=== PATIENT | male | born 1970 | race Caucasian/White ===

== ENCOUNTER 2022-04-06 13:40 | Outpatient (REF) | payer OTHER, SELFPAY ==
[2022-04-07 14:21] LABS: Appearance Urine Turbid; Color Urine Yellow; Glucose Urine UA Negative (Negative); Leukocyte Esterase Urine Negative (Negative); Nitrite Urine Negative (Negative); PH 5.5 (5.0-9.0); Specific Gravity - Urine 1.025 (1.005-1.025); Urine Blood Negative (Negative); Urine Ketones Negative (Negative); Urine Protein Trace mg/dL (Neg-Trace)
== END 2022-04-06 13:41 | disposition home or self-care (01) ==
LOC: HO.LNP 13:40
PROVIDERS: Visit Provider Nurse Practitioner Family
DX: Z13.89 Encounter for screening for other disorder (principal)

== ENCOUNTER → 2022-07-03 13:01 | Outpatient (BNVA) | payer OTHER, SELFPAY | PROVIDERS: PCP Family Medicine; Visit Provider Urology ==

== ENCOUNTER 2022-08-22 08:00 | Outpatient (REF) | payer OTHER, SELFPAY ==
[2022-08-22 09:19] LABS: Alanine Aminotransferase 24 U/L (0-40); Albumin Level 4.1 g/dL (3.5-5.0); Alkaline Phosphatase 75 U/L (39-117); Anion Gap 14 (12-20); Aspartate Amino Transferase 19 U/L (5-37); Bilirubin Total 0.4 mg/dL (0.0-1.0); Blood Urea Nitrogen 18 mg/dL (9-16); Calcium 9.3 mg/dL (8.4-10.2); Carbon Dioxide 25 mmol/L (22-29); Chloride 107 mmol/L (96-108); Cholesterol 204 mg/dL; Estimated Glomerular Filt Rate > 60; Glucose Fasting 125 mg/dL (60-99); HDL Cholesterol 38 mg/dL; LDL Cholesterol Calculated 126 mg/dl; Potassium 4.6 mmol/L (3.3-5.1); Sodium 141 mmol/L (135-145); Total Protein 7.1 g/dL (6.5-8.0); Triglycerides 201 mg/dL
[2022-08-22 09:36] LABS: TSH reflex Free T4 3.17 uIU/mL (0.32-4.0)
== END 2022-08-22 08:01 | disposition home or self-care (01) ==
LOC: HO.LAB 08:00
PROVIDERS: PCP Family Medicine; Visit Provider Family Medicine
DX: Z00.00 Encounter for general adult medical examination without abnormal findings (principal); I10 Essential (primary) hypertension; Z12.5 Encounter for screening for malignant neoplasm of prostate
CPT/HCPCS: 36415; 80053; 80061; 81003; 82043; 84153; 84443

== ENCOUNTER 2022-08-31 11:40 | Outpatient (AMB) | payer OTHER, SELFPAY ==
--- NOTE | 2022-08-31 11:40 | A.OFFVIS_ITS ---
Intake Intake Visit Reasons: surgical question (diff. alternative) Intake Note: * This is a telephone visit for Surgical Questions * Meds- None * Allergies to Antibiotic- None * Blood Thinner- None Director Of Recruitment And Admissions Required: No Accompanied by: Self / Same As Patient Allergies No Known Allergies Allergy (Verified 09/04/22 15:51) Medication List - Last Reconciled 08/31/22 by Yael Perez MD naproxen 500 mg PO BID PRN HPI HPI Comments History of Present Illness Details LV--07/03/22--Hector is a 51-year-old male who presents to the office as a new patient evaluation for genital warts. The patient states undergoing excision 5 years ago for genital warts and underwent another procedure 3 years ago. He is due for blood work done and PSA is part of the blood work that is ordered by his PCP. I discussed with the patient that genital condyloma is caused due to the HPV virus and factors such as but not limited to stress may affect the immune system and cause recurrent lesions. Evaluation today-- Blood: negative, leukocytes: negative. On exam: a cauliflower like growth below the scrotum and smaller wart like lesion on the left side of the shaft of the penis. Prostate exam: mildly enlarged prostate, smooth. Plan: Discussed importance of drinking adequate amount of water. Excision of genital warts discussed to be scheduled.? 08/31/22-- HPI: As noted above. The patient had canceled his scheduled procedure to have the excision of the genital condyloma. He canceled the procedure because the hospital called him and changed the procedure time and the person that was going to bring him to the hospital was not able to bring him because of the time change. He is still willing to undergo the procedure. Plan: Excision of genital condyloma discussed to be scheduled.? 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 Current occupational exposures/hazards: No Cognitive needs: No Hearing needs: No Vision needs: No Review of Systems Const All systems reviewed & are unremarkable except as noted in HPI and below Reports no additional complaints Eyes Reports no additional complaints ENT Denies neck pain Card Denies leg edema Resp Denies cough GI Denies constipation Musc Reports no additional complaints and Denies neck pain Skin/Breast Denies rash and Denies unusual bruising Neuro Reports no additional complaints Psych Reports no additional complaints Endo Reports no additional complaints Sergio/Lymph Reports no additional complaints Aller/Immun Reports no additional complaints Assessment & Plan Assessment & Plan (1) Genital condyloma, male: Code(s): A63.0 - Anogenital (venereal) warts Plan Excision of genital condyloma discussed to be scheduled.? Patient Instructions: The patient had an opportunity to ask questions regarding treatment plan. All questions were answered. No major barriers to understanding were identified. The patient expressed understanding and agreement with the above treatment plan. The patient is aware they should contact our office by phone for worsening of their current condition or the appearance of new symptoms. Compliance is encouraged with any medications and followup testing that is ordered. It is a privilege to be allowed the opportunity to participate in the urologic care of your patient. If you have any questions or concerns regarding treatment for the above conditions please do not hesitate to contact me. The office telephone contact is [phone]. This note is constructed in part using voice recognition software. While every effort has been made to ensure accuracy software engineer kernel errors may have been included. Yours sincerely, Yael Perez MD Telehealth Telehealth Location of provider rendering services: practice address Location of patient: address on file Patient Identification confirmed using: Name, : Yes Telehealth method: voice only Patient verbally consented to treatment: Yes Patient verbally consented to billing insurance company: Yes Patient informed of any privacy concerns related to visit: Yes Minutes spent on Phone/Video with Pt.: 15 Coding Level of Care Code Tele New Pt Level 3 (80945) Diagnoses Genital condyloma, male A63.0
== END 2022-08-31 11:45 ==
LOC: HO.HUSH 11:40
PROVIDERS: PCP Family Medicine; Visit Provider Urology
DX: A63.0 Anogenital (venereal) warts (principal)
CPT/HCPCS: 99213

== ENCOUNTER → 2022-08-31 11:40 | Outpatient (BNVA) | payer OTHER, SELFPAY | PROVIDERS: PCP Family Medicine; Visit Provider Urology ==

== ENCOUNTER 2022-09-04 15:46 | Outpatient (AMB) | payer OTHER, SELFPAY ==
[2022-09-04 15:49] VITALS: BP 134/78; PULSE 67; O2SAT 97; BMI 37.1
--- NOTE | 2022-09-04 15:49 | MHC.PC.OV ---
Vital Signs 09/04/22 15:49 Height 6 ft Weight 273 lb 4 oz BMI 37.1 BP 134/78 Blood Pressure Location Lt brachial Position Sitting Pulse 67 Pulse Source Pulse Oximeter Pulse Oximetry (%) 97 Oxygen Delivery Method Room Air Intake Visit Reasons: CPE Intake Note: Patient is here for his physical today. Allergies No Known Allergies Allergy (Verified 09/04/22 15:51) Tobacco use date assessed: 09/04/22 Dental Screening Dental Screen Date: 09/04/22 Did you have a dental visit in the last 12 months?: Yes Did you have a dental problem in the last 6 months where you did not have access to dental care?: No Was dental information given to patient?: No HPI CPE HPI Details 51 y/o male presents for a CPE with f/u labs and [facility]. Labs were drawn 08/22/22. Reviewed labs with pt. Elevated fasting glucose of 125. Triglycerides 201. TC 204. LDL 126. HDL low at 38. He is not on any medications for his lipids. Microalb/Creat Ratio of 63.6. He reports significant GERD. He states he does have a hx of hiatal hernia. He reports last colonoscopy showed some small polyps, benign. 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 Jose Ryan, Anitra Murray, Terrance Mcneal and colleagues, with an educational juanita from [employer]. Review of Systems Const Denies chills, Denies fatigue, Denies fever(s), Denies headache(s) and Denies weakness Eyes Denies change in vision ENT Denies dizziness, Denies headache(s), Denies hearing loss, Denies nasal congestion, Denies sinus pain, Denies sinus pressure and Denies sore throat Card Denies chest pain, Denies lightheadedness, Denies dyspnea and Denies other (palpitations) Resp Denies cough, Denies dyspnea and Denies wheezing GI Denies abdominal pain, Denies melena, Denies hematochezia, Denies change in bowel habits, Denies dyspepsia and Denies nausea Denies hematuria and Denies dysuria Musc Denies abnormal gait, Denies myalgias, Denies arthralgias, Denies numbness and Denies tingling Skin/Breast Denies rash, Denies unusual bruising and Denies wounds Neuro Denies abnormal gait, Denies dizziness, Denies headache(s), Denies memory loss, Denies numbness, Denies Sensory deficit (Neuro), Denies tingling and Denies weakness Psych Denies anxiety, Denies depression and Denies memory loss Endo Denies cold intolerance, Denies fatigue, Denies heat intolerance, Denies polydipsia and Denies polyuria Sergio/Lymph Denies easy bleeding and Denies easy bruising Aller/Immun Denies wheezing Physical exam (Primary Care) Vital Signs: Last Vital Signs Pulse 67 09/04/22 15:49 BP 134/78 09/04/22 15:49 Pulse Ox 97 09/04/22 15:49 Oxygen Delivery Method Room Air 09/04/22 15:49 BMI result Body Mass Index 37.1 Tobacco/Smoking Status: Tobacco use Status Tobacco use date assessed 09/04/22 09/04/22 15:56 Patient Tobacco Use Status Former Tobacco user 09/04/22 15:56 Tobacco use type Cigarette 09/04/22 15:56 e-Cigarette/Vaping Use Never Used 09/04/22 15:56 Thrive Assessment: Date of Thrive Assessment Date Thrive assessed 05/22/22 09/04/22 15:56 Const General: no acute distress, well developed, alert and awake Nutritional Appearance: well nourished Orientation/consciousness: patient oriented x3 HENMT Head: Yes normocephalic and Yes atraumatic Ears: hearing grossly normal bilaterally and TM's normal bilaterally General nose exam: Normal external nose present and Normal nares present Mouth: Normal oral and palatal mucosa present and moist mucous membranes Teeth and gingiva: dentition normal Throat: Yes posterior oropharynx normal Eyes General: appearance normal, both eyes and all related structures Pupils: Equal, round and reactive pupils present and Pupil accommodation reflex normal EOM: EOMs intact bilaterally Neck Neck: Yes normal visual inspection, Yes no lymphadenopathy and Yes trachea midline Thyroid: Thyroid normal Carotids: no bruits Lymphatic: no lymphadenopathy noted Chest Chest palpation & inspection: normal inspection of the chest Resp Effort & Inspection: normal respiratory effort Auscultation: clear to auscultation bilaterally Cardio Rate: regular rate Rhythm: regular rhythm Heart sounds: S1 normal heart sound present, S2 normal heart sound present, no gallops, no murmurs and no rubs Bruits: no abdominal aortic bruits and no carotid bruits GI Palpation (GI): No Abdominal aortic bruit present, Soft to palpation, nontender, No hepatosplenomegaly present and No Rebound tenderness present Auscultation: normal bowel sounds General: Yes no CVA tenderness Back/Spine/Pelvis Back: no CVA tenderness Cervical Spine: cervical ROM normal and No Cervical spine tenderness Thoracic/Lumbar Spine: thoraco-lumbar ROM normal, No pain with thoraco-lumbar ROM, No thoracic spinal tenderness and No lumbar spinal tenderness Skin Lesions: no lesions Rashes: no rashes Trauma: no lacerations or abrasions Wounds: no wounds Nails: normal Neuro General: patient oriented x3 Cranial nerves: Yes Equal, round and reactive pupils present Cognition (Neuro): normal cognition Gait exam (Neuro): Normal gait present Motor exam (neuro): 5/5 motor strength present throughout Sensory Exam: No Sensory deficit (Neuro) Deep tendon reflexes (DTR's): Right patellar reflex intensity grade: 2+ and Left patellar reflex intensity grade: 2+ Extrem General: Yes normal to inspection and No edema Psych Appearance: grossly normal Affect: normal affect Attitude: cooperative Thought process: Normal thought process present Results AMB Hemoglobin A1c AMB Hemoglobin A1c 5.6 % Last Edit by Geovanna Bob CMA on 09/04/22 16:13 Results Reviewed Results Reviewed: Laboratory Last Values Hgb A1c (Clinic) 5.6 % (4.0-6.0) 09/04/22 16:06 Assessment and Plan Assessment & Plan (1) Adult general medical exam: Code(s): Z00.00 - Encounter for general adult medical examination without abnormal findings Plan: 51-year-old male presents for complete physical exam Encouraged healthy diet with active lifestyle and plenty of exercise (2) Microalbuminuria: Code(s): R80.9 - Proteinuria, unspecified Plan: Encouraged blood sugar her blood pressure and cholesterol control Encouraged lifestyle changes and we will follow-up in 3 months If still elevated will discuss using a small dose of lisinopril and also consider a referral to Nephrology (3) High triglycerides: Code(s): E78.1 - Pure hyperglyceridemia Plan: Encouraged a diet lower in saturated fats and cholesterol Encouraged blood sugar control Encouraged weight loss and exercise (4) Low HDL (under 40): Code(s): E78.6 - Lipoprotein deficiency Plan: Encouraged exercise (5) Elevated fasting glucose: Code(s): R73.01 - Impaired fasting glucose Plan: Encouraged a diet lower in sugars and starches Encouraged weight loss and exercise (6) Screening for colon cancer: Code(s): Z12.11 - Encounter for screening for malignant neoplasm of colon Plan: History of polyps. Patient has uncertain when he is supposed to follow-up Referring him to Gastroenterology for moderately severe GERD so he can also be evaluated for follow-up for colon cancer screening at that time. (7) GERD (gastroesophageal reflux disease): Code(s): K21.9 - Gastro-esophageal reflux disease without esophagitis Plan: Moderately severe GERD and a history of hiatal hernia, currently untreated Start omeprazole Avoid triggers Referred to Gastroenterology (8) Screening for prostate cancer: Code(s): Z12.5 - Encounter for screening for malignant neoplasm of prostate Plan: PSA was within normal limits Recent TARUN by Urology was within normal limits. Seeing urology for general warts Follow-up with urology (9) Change in hearing: Code(s): H91.90 - Unspecified hearing loss, unspecified ear Plan: This appears fairly stable and he does not want to pursue audiology testing at this time He will let me know if he changes his mind (10) History of hiatal hernia: Code(s): Z87.19 - Personal history of other diseases of the digestive system Plan: As above, he is already referred to Gastroenterology Orders: Orders AMB Hemoglobin A1c Today Z13.9 - Encounter for screening, unspecified Microalbumin, Random (w Creat) Today I10 - Essential (primary) hypertension, R80.9 - Proteinuria, unspecified Lipid Panel Today E78.1 - Pure hyperglyceridemia, Z00.00 - Encounter for general adult medical examination without abnormal findings Comprehensive [place]. Panel Fast Today R73.01 - Impaired fasting glucose, Z00.00 - Encounter for general adult medical examination without abnormal findings Referrals Gastroenterology Referral K21.9 - Gastro-esophageal reflux disease without esophagitis, Z86.010 - Personal history of colonic polyps, Z87.19 - Personal history of other diseases of the digestive system Medications: New omeprazole 40 mg PO DAILY 30 caps 3RF 30 days Coding Level of Care Code Est Pt Level 3 (61000) Est Pt Prev Care 40-64y(16953) Diagnoses Adult general medical exam Z00.00 Microalbuminuria R80.9 High triglycerides E78.1 Low HDL (under 40) E78.6 Elevated fasting glucose R73.01 Screening for colon cancer Z12.11 GERD (gastroesophageal reflux disease) K21.9 Screening for prostate cancer Z12.5 Change in hearing H91.90 History of hiatal hernia Z87.19
== END 2022-09-04 16:50 | disposition home or self-care (01) ==
PROVIDERS: Visit Provider Family Medicine
DX: Z00.00 Encounter for general adult medical examination without abnormal findings (principal); K21.9 Gastro-esophageal reflux disease without esophagitis; Z87.19 Personal history of other diseases of the digestive system; R73.01 Impaired fasting glucose; R80.9 Proteinuria, unspecified; E78.1 Pure hyperglyceridemia; E78.6 Lipoprotein deficiency; Z12.11 Encounter for screening for malignant neoplasm of colon; Z12.5 Encounter for screening for malignant neoplasm of prostate; H91.90 Unspecified hearing loss, unspecified ear
CPT/HCPCS: 83036; 99396

== ENCOUNTER 2022-11-03 10:28 | Day surgery (SDC) | payer OTHER, SELFPAY ==
[2022-07-31 15:00] VITALS: BMI 35.9
--- NOTE | 2022-08-03 10:34 | HO.ANESPROP2 ---
HPI - Anesthesia Eval Consult details Narrative: 51yo M for Excision Genital Warts PMF Active Problems Active Problems: All Active Problems (Updated 07/03/22 @ 13:36 by Angela Cadena) Genital condyloma, male (Acute) Genital warts (Acute) History of smoking (Acute) High triglycerides (Acute) Laboratory examination ordered as part of a routine general medical examination (Acute) Left groin pain (Acute) Past Medical History Medical History Dermatitis Family History Family History Mother Hypertension Hypercholesteremia Father Diabetes Cardiovascular disease Surgical History Surgical History H/O colonoscopy H/O vasectomy Social History Social History Housing: House Alcohol intake: never Patient Tobacco Use Status: Former Tobacco user Tobacco use type: Cigarette e-Cigarette/Vaping Use: Never Used service: Yes Current occupational status: employed 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
--- NOTE | 2022-11-02 10:13 | HO.ANESPROP2 ---
Documented by User: Yvonne Davis NP 11/02/22 10:14 HPI - Anesthesia Eval Consult details Narrative: 51yo M for Excision Genital Warts PMF Active Problems Active Problems: All Active Problems (Updated 09/04/22 @ 16:35 by Reinier Moreno) History of hiatal hernia (Acute) GERD (gastroesophageal reflux disease) (Acute) Change in hearing (Acute) Screening for prostate cancer (Acute) Screening for colon cancer (Acute) Elevated fasting glucose (Acute) Low HDL (under 40) (Acute) Microalbuminuria (Acute) Adult general medical exam (Acute) Genital condyloma, male (Acute) Genital warts (Acute) History of smoking (Acute) High triglycerides (Acute) Laboratory examination ordered as part of a routine general medical examination (Acute) Left groin pain (Acute) Past Medical History Medical History Dermatitis Family History Family History Mother Hypertension Hypercholesteremia Father Diabetes Cardiovascular disease Surgical History Surgical History H/O colonoscopy H/O vasectomy Social History Social History Housing: House Alcohol intake: never Patient Tobacco Use Status: Former Tobacco user Quit Date: 2016 Tobacco use type: Cigarette e-Cigarette/Vaping Use: Never Used Use of substances other than those prescribed or required for medical reasons: No Are you DNR?: No Advance Directives: No Advance Directives Information Provided: Yes service: Yes Current occupational status: employed 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[employer] Current occupational exposures/hazards: No Cognitive needs: No Hearing needs: No Vision needs: No Meds Allergies Allergy/AdvReac Type Severity Reaction Status Date / Time No Known Allergies Allergy Verified 11/03/22 10:37 Home Medications Medication Instructions Recorded Confirmed Last Taken Type omeprazole 40 mg capsule,delayed 40 mg PO DAILY PRN Heartburn 11/03/22 Unknown History release Exam Exam Date and Time: November 02, 2022 1013 Height,Weight and Vital Signs: Height 6 ft Weight 120.202 kg Pertinent Lab Results Pertinent Lab Results: Laboratory Tests 08/22/22 08:07 Sodium 141 Potassium 4.6 Chloride 107 Carbon Dioxide 25 BUN 18 H Creatinine 1.06 Assessment and Plan Assessment Anesthesia Assessment: Chart Reviewed Documented by User: Gabriela Thomas MD 11/03/22 11:57 PMFSH Past Medical History Medical History Dermatitis Family History Family History Mother Hypertension Hypercholesteremia Father Diabetes Cardiovascular disease Surgical History Surgical History H/O colonoscopy H/O vasectomy History of Problems with Anesthesia: No Social History Social History Housing: House Alcohol intake: never Patient Tobacco Use Status: Former Tobacco user Quit Date: 2016 Tobacco use type: Cigarette e-Cigarette/Vaping Use: Never Used Use of substances other than those prescribed or required for medical reasons: No Are you DNR?: No Advance Directives: No Advance Directives Information Provided: Yes service: Yes Current occupational status: employed 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 Current occupational exposures/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: No Cognitive needs: No Hearing needs: No Vision needs: No Meds Allergies Allergy/AdvReac Type Severity Reaction Status Date / Time No Known Allergies Allergy Verified 11/03/22 10:37 Home Medications Medication Instructions Recorded Confirmed Last Taken Type omeprazole 40 mg capsule,delayed 40 mg PO DAILY PRN Heartburn 11/03/22 Unknown History release Exam Airway Mallampati Class: III TM Dist: >3cm Neck ROM: Full Loose/Missing/Broken Teeth: No Heart: RRR Lungs: CTA Assessment and Plan Assessment Anesthesia Assessment: Anesthesia Plan Discussed Final Anesthetic Review History of Problems with Anesthesia: No NPO: Yes ASA Class: II Final Preanesthetic Review: Meds/Allgs Chart Reviewed, Consent Obtained/Reviewed and Anes Risks/Benef Reviewed Patient Risk: Low Procedure Risk: Low Anesthetic Plan Anesthetic Plan: GA Disposition: Standard PACU
[2022-11-03 10:37] VITALS: BMI 34.6
[2022-11-03 10:44] VITALS: BP 137/82; PULSE 59; RESP 15; TEMP 36.6; O2SAT 96
[2022-11-03] MEDS: Lactated Ringers 1,000 ML 100 ML IVCONT (10:58)
--- NOTE | 2022-11-03 12:11 | MHC.SHP ---
Pre-Procedural Eval Section A Date of Service: 11/03/22 The patient is an INPATIENT: No The History & Physical has been completed within 30 days and I have reviewed it.: Yes Section B Chief Complaint: Anogenital (venereal) warts Allergies: Allergies Allergy/AdvReac Type Severity Reaction Status Date / Time No Known Allergies Allergy Verified 11/03/22 10:37 Plan Diagnosis/Plan: Unchanged I have reviewed the history and physical and performed a pertinent physical examination on my patient. No changes have occurred unless specified. Excision of Genital warts Time Spent With Patient Time: Total time managing care of this patient today ____ minutes.
[2022-11-03 13:10] VITALS: BP 114/71; PULSE 67; RESP 22; TEMP 36.2; O2SAT 96
[2022-11-03 13:15] VITALS: BP 122/68; PULSE 67; RESP 20; O2SAT 96
--- NOTE | 2022-11-03 13:17 | W.PM.OPN ---
Operative Note Operative Note Date of Service: 11/03/22 Narrative: Preoperative diagnosis: Genital warts Postoperative diagnosis: Genital warts Procedure: Exision Genital warts Surgeon: Dr. Yael Perez Anesthesia: General findings: approximately 2.0 mm lesion shaft of the penis on the dorsal aspect, large cauliflower lesion right-side scrotum and groin approximately 4 x 4 cm Details of procedure:? The patient was brought into the operating room placed on the OR table in supine position.? 2 g of Ancef IV.? General anesthesia was administered.? The patient was prepped and draped in the usual sterile fashion. ? Time-out was done per protocol.? 1% lidocaine was used for local; both lesions were excised with 15 blade knife, cautery was used for hemostasis the skin was approximated with 4-0 and 3-0 chromic interrupted sutures. Bacitracin ointment and gauze was applied. The patient tolerated the procedure well. He was brought out of anesthesia. Drains: none Complications: none
[2022-11-03 13:20] VITALS: BP 118/70; PULSE 61; RESP 20; O2SAT 96
[2022-11-03 13:25] VITALS: BP 116/72; PULSE 60; RESP 20; O2SAT 96
[2022-11-03 13:40] VITALS: BP 120/68; PULSE 60; RESP 20; TEMP 36.4; O2SAT 96
== END 2022-11-03 13:56 | disposition home or self-care (01) ==
PROVIDERS: PCP Family Medicine; Visit Provider Urology
PROC: (CPT 11422; principal; 2022-11-03 12:00)
DX: A63.0 Anogenital (venereal) warts (principal); N40.0 Benign prostatic hyperplasia without lower urinary tract symptoms; L30.9 Dermatitis, unspecified; Z98.52 Vasectomy status; Z87.891 Personal history of nicotine dependence
CPT/HCPCS: 11422; 11426; 88305; J0131; J0690; J1100; J1885; J2250; J2405; J3010

== ENCOUNTER → 2022-11-03 10:28 | Outpatient (BNV) | payer OTHER, SELFPAY | PROVIDERS: PCP Family Medicine; Visit Provider Urology | DX: A63.0 Anogenital (venereal) warts (principal) | CPT/HCPCS: 54060 ==

== ENCOUNTER 2022-12-03 06:05 | Outpatient (REF) | payer OTHER, SELFPAY ==
[2022-12-03 08:18] LABS: Alanine Aminotransferase 30 U/L (0-40); Albumin Level 4.3 g/dL (3.5-5.0); Alkaline Phosphatase 74 U/L (39-117); Anion Gap 13 (12-20); Aspartate Amino Transferase 23 U/L (5-37); Bilirubin Total 0.8 mg/dL (0.0-1.0); Blood Urea Nitrogen 14 mg/dL (9-16); Calcium 9.9 mg/dL (8.4-10.2); Carbon Dioxide 26 mmol/L (22-29); Chloride 104 mmol/L (96-108); Cholesterol 195 mg/dL (<200); Estimated Glomerular Filt Rate > 60; Glucose Fasting 107 mg/dL (60-99); HDL Cholesterol 46 mg/dL (>40); LDL Cholesterol Calculated 128 mg/dL (<100); Potassium 4.3 mmol/L (3.3-5.1); Sodium 139 mmol/L (135-145); Total Protein 7.2 g/dL (6.5-8.0); Triglycerides 105 mg/dL (<150)
[2022-12-03 09:55] LABS: Creatinine Urine 141.64 mg/dL; Microalbum/Creatinine Ratio Ur 42.3 ug/mg cr (<30)
== END 2022-12-03 06:06 | disposition home or self-care (01) ==
LOC: HO.LAB 06:05
PROVIDERS: PCP Family Medicine; Visit Provider Family Medicine
DX: Z00.00 Encounter for general adult medical examination without abnormal findings (principal); I10 Essential (primary) hypertension; R80.9 Proteinuria, unspecified; E78.1 Pure hyperglyceridemia; R73.01 Impaired fasting glucose
CPT/HCPCS: 36415; 80053; 80061; 82043; 82570

== ENCOUNTER 2022-12-07 14:20 | Outpatient (REF) | payer OTHER, SELFPAY ==
[2022-12-08 15:26] LABS: Creatinine Urine 141.94 mg/dL; Microalbum/Creatinine Ratio Ur 52.1 ug/mg cr (<30)
== END 2022-12-07 14:21 | disposition home or self-care (01) ==
LOC: HO.LNP 14:20
PROVIDERS: Visit Provider Family Medicine
DX: I10 Essential (primary) hypertension (principal)
CPT/HCPCS: 82043; 82570

== ENCOUNTER 2022-12-07 15:59 | Outpatient (AMB) | payer OTHER, SELFPAY ==
[2022-12-07 16:14] VITALS: BP 132/76; PULSE 78; O2SAT 98; BMI 34.2
--- NOTE | 2022-12-07 16:14 | MHC.PC.OV ---
Vital Signs 12/07/22 16:14 Height 6 ft Weight 252 lb BMI 34.2 BP 132/76 Blood Pressure Location Lt brachial Position Sitting Pulse 78 Pulse Source Pulse Oximeter Pulse Oximetry (%) 98 Oxygen Delivery Method Room Air Intake Visit Reasons: f/u high triglycerides, microalbuminuria Intake Note: Patient is here to follow up on trigycerides and microalbumin. Allergies No Known Allergies Allergy (Verified 12/07/22 16:16) Tobacco use date assessed: 12/07/22 Dental Screening Dental Screen Date: 12/07/22 Did you have a dental visit in the last 12 months?: Yes Did you have a dental problem in the last 6 months where you did not have access to dental care?: No Was dental information given to patient?: Patient has dentist HPI f/u high triglycerides, microalbuminuria HPI Details 52 y/o male presents to f/u microalbuminuria and high triglycerides. Labs were drawn 12/03/22. Reviewed labs with pt. Elevated fasting glucose of 107. Last A1c 09/04/22 5.6%. Triglycerides 105. TC 195. LDL 128. HDL 46. Microalb/Creat Ratio 42.3. A1c today 12/07/22 is 5.4%. 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 Jose Ryan, Anitra Murray, Terrance Mcneal and colleagues, with an educational juanita from [employer]. Review of Systems Const Denies chills, Denies fatigue, Denies fever(s), Denies headache(s) and Denies weakness ENT Denies dizziness and Denies headache(s) Card Denies chest pain, Denies lightheadedness, Denies dyspnea and Denies other (Palpitations) Resp Denies cough, Denies dyspnea, Denies wheezing and Denies other ( shortness of breath) Musc Denies numbness and Denies tingling Neuro Denies dizziness, Denies headache(s), Denies numbness, Denies tingling, Denies paresthesias and Denies weakness Psych Denies anxiety and Denies depression Endo Denies fatigue Aller/Immun Denies wheezing Physical exam (Primary Care) Vital Signs: Last Vital Signs Pulse 78 12/07/22 16:14 BP 132/76 12/07/22 16:14 Pulse Ox 98 12/07/22 16:14 Oxygen Delivery Method Room Air 12/07/22 16:14 BMI result Body Mass Index 34.2 Tobacco/Smoking Status: Tobacco use Status Tobacco use date assessed 12/07/22 12/07/22 16:21 Patient Tobacco Use Status Former Tobacco user 12/07/22 16:21 Tobacco use type Cigarette 12/07/22 16:21 e-Cigarette/Vaping Use Never Used 12/07/22 16:21 Thrive Assessment: Date of Thrive Assessment Date Thrive assessed 05/22/22 12/07/22 16:21 Const General: no acute distress and well developed Nutritional Appearance: well nourished Orientation/consciousness: patient oriented x3 [facility] Head: Yes normocephalic and Yes atraumatic Eyes General: appearance normal, both eyes and all related structures Pupils: Equal, round and reactive pupils present EOM: EOMs intact bilaterally Resp Effort & Inspection: normal respiratory effort Auscultation: clear to auscultation bilaterally Cardio Rate: regular rate Rhythm: regular rhythm Heart sounds: S1 normal heart sound present, S2 normal heart sound present, no gallops, no murmurs and no rubs Neuro General: patient oriented x3 and gait normal Cranial nerves: Yes Equal, round and reactive pupils present Psych Affect: normal affect Results AMB Hemoglobin A1c AMB Hemoglobin A1c 5.4 % Last Edit by Geovanna Bob CMA on 12/07/22 17:16 Assessment and Plan Assessment & Plan (1) Microalbuminuria: Code(s): R80.9 - Proteinuria, unspecified Plan: Improving Continue?weight?loss,?blood?pressure,?blood?sugar?and?cholesterol?control. ?Hydrate?well Will?follow (2) High triglycerides: Code(s): E78.1 - Pure hyperglyceridemia Plan: Continue?lifestyle?changes Recheck?lipid (3) Low HDL (under 40): Code(s): E78.6 - Lipoprotein deficiency Plan: Increase?exercise?and?continue?lifestyle?changes Check?lipid (4) Elevated fasting glucose: Code(s): R73.01 - Impaired fasting glucose Plan: Patient?has?lost?about?20?lb?in?the?past?3?months. Also?working?on?eating?healthier A1c?today:??5.4,?improved?from?5.6?in?August. Continue?lifestyle?changes Orders: Orders Comprehensive [place]. Panel Fast Today Z00.00 - Encounter for general adult medical examination without abnormal findings Microalbumin, Random (w Creat) Today I10 - Essential (primary) hypertension Lipid Panel Today E78.6 - Lipoprotein deficiency, Z00.00 - Encounter for general adult medical examination without abnormal findings Coding Level of Care Code Est Pt Level 4 (23562) Diagnoses Microalbuminuria R80.9 High triglycerides E78.1 Low HDL (under 40) E78.6 Elevated fasting glucose R73.01
== END 2022-12-07 17:24 | disposition home or self-care (01) ==
PROVIDERS: PCP Family Medicine; Visit Provider Family Medicine
DX: R80.9 Proteinuria, unspecified (principal); E78.1 Pure hyperglyceridemia; E78.6 Lipoprotein deficiency; R73.01 Impaired fasting glucose; Z13.9 Encounter for screening, unspecified
CPT/HCPCS: 83036; 99214

== ENCOUNTER 2023-06-02 06:58 | Outpatient (REF) | payer OTHER, SELFPAY ==
[2023-06-02 08:07] LABS: Alanine Aminotransferase 27 U/L (0-40); Albumin Level 4.1 g/dL (3.5-5.0); Alkaline Phosphatase 69 U/L (39-117); Anion Gap 11 (12-20); Aspartate Amino Transferase 23 U/L (5-37); Bilirubin Total 0.6 mg/dL (0.0-1.0); Blood Urea Nitrogen 16 mg/dL (9-16); Carbon Dioxide 25 mmol/L (22-29); Chloride 106 mmol/L (96-108); Cholesterol 203 mg/dL (<200); Estimated Glomerular Filt Rate > 60; Glucose Fasting 116 mg/dL (60-99); HDL Cholesterol 37 mg/dL (>40); LDL Cholesterol Calculated 144 mg/dL (<100); Potassium 4.2 mmol/L (3.3-5.1); Sodium 138 mmol/L (135-145); Total Protein 7.1 g/dL (6.5-8.0); Triglycerides 111 mg/dL (<150)
[2023-06-02 08:49] LABS: Creatinine Urine 173.36 mg/dL; Microalbum/Creatinine Ratio Ur 39.8 ug/mg cr (<30)
== END 2023-06-02 06:59 | disposition home or self-care (01) ==
LOC: HO.LAB 06:58
PROVIDERS: PCP Family Medicine; Visit Provider Family Medicine
DX: Z00.00 Encounter for general adult medical examination without abnormal findings (principal); E78.6 Lipoprotein deficiency; I10 Essential (primary) hypertension
CPT/HCPCS: 36415; 80053; 80061; 82043; 82570

== ENCOUNTER 2023-06-07 15:26 | Outpatient (AMB) | payer OTHER, SELFPAY ==
[2023-06-07 15:37] VITALS: BP 124/72; BMI 35.8
--- NOTE | 2023-06-07 15:37 | MHC.PC.OV ---
Vital Signs 06/07/23 15:37 Height 6 ft Weight 264 lb BMI 35.8 BP 124/72 Blood Pressure Location Rt brachial Position Sitting Intake Visit Reasons: f/u elevated FBS, lipids & microalbuminuria Intake Note: Patient is here for elvated fasting blood sugar lipids, and microalbuminuria. Allergies No Known Allergies Allergy (Verified 06/07/23 15:41) Medication List - Last Reconciled 06/07/23 by Luis Min MD omeprazole 40 mg PO DAILY PRN Tobacco use date assessed: 06/07/23 Dental Screening Dental Screen Date: 06/07/23 Did you have a dental visit in the last 12 months?: Yes Did you have a dental problem in the last 6 months where you did not have access to dental care?: No Was dental information given to patient?: Patient has dentist HPI f/u elevated FBS, lipids & microalbuminuria HPI Details 52 y/o male presents to f/u elevated fasting blood sugars, lipids and microalbuminuria. Last A1c 12/07/22 5.4%. A1c today 06/07/23 is 5.5%. Labs were drawn 06/02/23. Reviewed labs with pt. Elevated fasting glucose of 116. Triglycerides 111. TC 203. LDL 144. HDL low at 37. Pt has complaints of bilateral shoulder pain. HPI Comments History of Present Illness Details Documentation assistance for Luis Min MD, was provided by Reinier Moreno, [employer] on 06/07/2023 4:11 PM EST. Gandhi, Dr. Min, have read, observed, and verified documentation. 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 1. Little interest or pleasure in doing things: not at all 2. Feeling down, depressed, or hopeless: not at all 3. Trouble falling or staying asleep, or sleeping too much: not at all 4. Feeling tired or having little energy: not at all 5. Poor appetite or overeating: not at all 6. Feeling bad about yourself - or that you are a failure or have let yourself or your family down: not at all 7. Trouble concentrating on things, such as reading the newspaper or watching television: not at all 8. Moving or speaking so slowly that other people could have noticed. Or the opposite - being so fidgety or restless that you have been moving around a lot more than usual: not at all 9. Thoughts that you would be better off or of hurting yourself in some way: not at all Total score: 0 Depression Screening Interpretation: Negative Depression Screening Done: Yes 45665 - PHQ-9 Billing: Yes Source: Developed by Drs. Jose Ryan, Anitra Murray, Terrance Mcneal and colleagues, with an educational juanita from [employer]. Thrive Questionnaire Date Thrive assessed: 06/07/23 I am a: Patient What is your living situation today?: I have a steady place to live Within the past 12 months, did the food you bought not last and you didn't have the money to get more?: Never true Within the past 12 months, did you worry whether your food would run out before you got money to buy more?: Never true Do you have trouble paying for medicines?: No Do you have trouble getting transportation to medical appointments?: No Do you have trouble paying your heating and electricity bill?: No Do you have trouble taking care of your child, family member or friend?: No Do you have trouble with day-to-day activities such as bathing, preparing meals, shopping, managing finances, etc.?: No Are you currently unemployed and looking for a job?: No Are you interested in more education?: No THRIVE Score: 0 AUDIT C Alcohol Use Questionnaire (AUDIT-C) 1. How often do you have a drink containing alcohol?: Never 3. How often do you have six or more drinks on one occasion?: Never Total Score: 0 NOAH-7 AMB Questionnaire NOAH-7 Date NOAH - 7 assessed: 06/07/23 Feeling nervous, anxious, or on edge: 0 = Not at all Not being able to stop or control worryin = Not at all Worrying too much about different things: 0 = Not at all Trouble relaxin = Not at all Being so restless that it is hard to sit still: 0 = Not at all Becoming easily annoyed or irritable: 0 = Not at all Feeling afraid as if something awful might happen: 0 = Not at all Total NOAH-7 score (0-4 normal; 5-9 mild; 10-14 moderate; 15-21 severe): 0 Source: Developed by Drs. Jose Ryan, Anitra Murray, Terrance Mcneal and colleagues, with an educational juanita from [employer]. NOAH-7 Assessment Billing NOAH-7 Assessment Tool: NOAH-7 Assessment 28775 Review of Systems Const Denies chills, Denies fatigue, Denies fever(s), Denies headache(s) and Denies weakness ENT Denies dizziness and Denies headache(s) Card Denies chest pain, Denies lightheadedness, Denies dyspnea and Denies other (Palpitations) Resp Denies cough, Denies dyspnea, Denies wheezing and Denies other ( shortness of breath) Musc Details: Bilateral shoulder pain Denies numbness and Denies tingling Neuro Denies dizziness, Denies headache(s), Denies numbness, Denies tingling, Denies paresthesias and Denies weakness Psych Denies anxiety and Denies depression Endo Denies fatigue Aller/Immun Denies wheezing Physical exam (Primary Care) Vital Signs: Last Vital Signs BP 124/72 06/07/23 15:37 BMI result Body Mass Index 35.8 Tobacco/Smoking Status: Tobacco use Status Tobacco use date assessed 06/07/23 06/07/23 15:42 Patient Tobacco Use Status Former Tobacco user 06/07/23 15:42 Tobacco use type Cigarette 06/07/23 15:42 e-Cigarette/Vaping Use Never Used 06/07/23 15:42 PHQ-9: PHQ-9 Score PHQ-9: Total score 0 06/07/23 16:12 Depression Screening Interpretation: Negative Thrive Assessment: Date of Thrive Assessment Date Thrive assessed 06/07/23 06/07/23 15:54 Const General: no acute distress and well developed Nutritional Appearance: well nourished Orientation/consciousness: patient oriented x3 [facility] Head: Yes normocephalic and Yes atraumatic Eyes General: appearance normal, both eyes and all related structures Pupils: Equal, round and reactive pupils present EOM: EOMs intact bilaterally Resp Effort & Inspection: normal respiratory effort Auscultation: clear to auscultation bilaterally Cardio Rate: regular rate Rhythm: regular rhythm Heart sounds: S1 normal heart sound present, S2 normal heart sound present, no gallops, no murmurs and no rubs Neuro General: patient oriented x3 and gait normal Cranial nerves: Yes Equal, round and reactive pupils present Psych Affect: normal affect Results AMB Hemoglobin A1c AMB Hemoglobin A1c 5.5 % Last Edit by Belem Babcock CMA on 06/07/23 16:18 Assessment and Plan Assessment & Plan (1) Hyperlipidemia: Code(s): E78.5 - Hyperlipidemia, unspecified Plan: LDL?climbed?again?with?weight?gain He?is?already?made?changes?again?in?wants?to?continue?working?on?lifestyle?changes Will?recheck?again?in?3?months.??We?discussed?that?if?lipids?are?still?high?we?should?consider?using?medication?and?he?agrees (2) Low HDL (under 40): Code(s): E78.6 - Lipoprotein deficiency Plan: HDL?has?decreased?and?is?below?goal?of?greater?than?40. He?has?already?begun?increasing?his?exercise. Will?follow-up?at?next?visit (3) Microalbuminuria: Code(s): R80.9 - Proteinuria, unspecified Plan: Continue?working?at?a?diet?low?in?sugars?and?starches?to?control?blood?sugars Continue?working?at?a?diet?low?in?saturated?fats?and?cholesterol?as?well?as?working?at?weight?loss?and?exercise?to?control?lipids. We?discussed?that?if?microalbumin?levels?are?still?elevated?despite?good?control?of?the?above,?we?may?want?to?use?a?small?dose?of?KIRK?inhibitor (4) Elevated fasting glucose: Code(s): R73.01 - Impaired fasting glucose Plan: A1c?increased?slightly?to?5.5%?though?still?in?the?normal?range. Encouraged?weight?control?and?exercise.??Encouraged?diet?low?in?sugars?and?starches Will?follow (5) Bilateral shoulder pain: Code(s): M25.511 - Pain in right shoulder; M25.512 - Pain in left shoulder Plan: Patient?is?exercising?with?weights?on?a?regular?basis?but?notes?pain?and?tenderness?with?some?tightness?in?upper?posterior?shoulders?bilaterally. Referred?for?physical?therapy If?not?resolving,?will?refer?to?ortho Orders: Orders Lipid Panel Today E78.5 - Hyperlipidemia, unspecified, Z00.00 - Encounter for general adult medical examination without abnormal findings Comprehensive [place]. Panel Fast Today R73.01 - Impaired fasting glucose, Z00.00 - Encounter for general adult medical examination without abnormal findings Microalbumin, Random (w Creat) Today I10 - Essential (primary) hypertension, R80.9 - Proteinuria, unspecified AMB Hemoglobin A1c Today R73.01 - Impaired fasting glucose PT Evaluation and Treatment Today M25.511 - Pain in right shoulder, M25.512 - Pain in left shoulder Hemoglobin A1c Today R73.01 - Impaired fasting glucose Coding Level of Care Code Est Pt Level 4 (77672) Diagnoses Hyperlipidemia E78.5 Low HDL (under 40) E78.6 Microalbuminuria R80.9 Elevated fasting glucose R73.01 Bilateral shoulder pain M25.511; M25.512 Additional Codes NOAH-7 Assessment Billing - NOAH-7 Assessment Tool: NOAH-7 Assessment 38255 ([id number])
== END 2023-06-07 16:32 | disposition home or self-care (01) ==
PROVIDERS: PCP Family Medicine; Visit Provider Family Medicine
DX: E78.5 Hyperlipidemia, unspecified (principal); E78.6 Lipoprotein deficiency; R80.9 Proteinuria, unspecified; R73.01 Impaired fasting glucose; M25.511 Pain in right shoulder; M25.512 Pain in left shoulder
CPT/HCPCS: 83036; 99214

== ENCOUNTER 2023-09-02 06:07 | Outpatient (REF) | payer OTHER, SELFPAY ==
[2023-09-02 08:17] LABS: Estimated Average Glucose 103 mg/dL; Hemoglobin A1c % 5.2 % (<6.0)
[2023-09-02 08:46] LABS: Creatinine Urine 221.13 mg/dL
[2023-09-02 08:47] LABS: Alanine Aminotransferase 27 U/L (0-40); Albumin Level 4.1 g/dL (3.5-5.0); Alkaline Phosphatase 75 U/L (39-117); Anion Gap 9 (12-20); Aspartate Amino Transferase 16 U/L (5-37); Bilirubin Total 0.8 mg/dL (0.0-1.0); Blood Urea Nitrogen 14 mg/dL (9-16); Calcium 9.5 mg/dL (8.4-10.2); Carbon Dioxide 29 mmol/L (22-29); Chloride 107 mmol/L (96-108); Cholesterol 190 mg/dL (<200); Estimated Glomerular Filt Rate > 60; Glucose Fasting 105 mg/dL (60-99); HDL Cholesterol 39 mg/dL (>40); LDL Cholesterol Calculated 130 mg/dL (<100); Potassium 4.4 mmol/L (3.3-5.1); Sodium 141 mmol/L (135-145); Total Protein 6.5 g/dL (6.5-8.0); Triglycerides 109 mg/dL (<150)
== END 2023-09-02 06:08 | disposition home or self-care (01) ==
LOC: HO.LAB 06:07
PROVIDERS: PCP Family Medicine; Visit Provider Family Medicine
DX: Z00.00 Encounter for general adult medical examination without abnormal findings (principal); E78.5 Hyperlipidemia, unspecified; R73.01 Impaired fasting glucose; I10 Essential (primary) hypertension; R80.9 Proteinuria, unspecified
CPT/HCPCS: 36415; 80053; 80061; 82043; 82570; 83036

== ENCOUNTER 2023-09-07 15:31 | Outpatient (AMB) | payer OTHER, SELFPAY ==
--- NOTE | 2023-09-07 15:43 | A.OFFPC_ITS ---
Vital Signs 09/07/23 15:46 Height 6 ft Weight 246 lb BMI 33.4 BP 124/70 Blood Pressure Location Lt brachial Position Sitting Pulse 59 Pulse Source Pulse Oximeter Pulse Oximetry (%) 98 Oxygen Delivery Method Room Air Intake Visit Reasons: f/u HLD Intake Note: Patient is here to follow up on HLD. Allergies No Known Allergies Allergy (Verified 09/07/23 15:47) Tobacco use date assessed: 09/07/23 Dental Screening Dental Screen Date: 06/07/23 HPI f/u HLD HPI Details 52 y/o male presents to f/u hyperlipidem ia. Labs drawn 09/02/23. Reviewed labs with pt. A1c 5.2%. Triglycerides 109. TC 190. LDL 130. HDL low at 39. Has lost weight since last visit - 264 lbs to 246 lbs. He feels he could make further changes. Has complaints of an ingrown nail. 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 Jose Ryan, Anitra Murray, Terrance Mcneal and colleagues, with an educational juanita from [employer]. Physical exam (Primary Care) Vital Signs: Last Vital Signs Pulse 59 09/07/23 15:46 BP 124/70 09/07/23 15:46 Pulse Ox 98 09/07/23 15:46 Oxygen Delivery Method Room Air 09/07/23 15:46 BMI result Body Mass Index 33.4 Tobacco/Smoking Status: Tobacco use Status Tobacco use date assessed 09/07/23 09/07/23 15:52 Patient Tobacco Use Status Former Tobacco user 09/07/23 15:44 Tobacco use type Cigarette 09/07/23 15:44 e-Cigarette/Vaping Use Never Used 09/07/23 15:44 Thrive Assessment: Date of Thrive Assessment Date Thrive assessed 06/07/23 09/07/23 15:44 Assessment and Plan Assessment & Plan (1) Hyperlipidemia: Code(s): E78.5 - Hyperlipidemia, unspecified Plan: Lipids?are?improving Still?above?goal?of?less?than?100?for?LDL?cholesterol Patient?has?lost?over?18?lb?and?is?not?at?steady?state. He?is?still?working?at?weight?loss?and?expects?to?lose?another?20?lb. Will?hold?off?on?consideration?of?medication?and?see?if?he?is?able?to?do?this?w ith?diet?and?exercise (2) Elevated fasting glucose: Code(s): R73.01 - Impaired fasting glucose Plan: A1c?has?improved?and?is?in?normal?range?still Continue?lifestyle?changes?including?a?diet?low?in?sugars?and?start (3) Ingrown nail: Code(s): L60.0 - Ingrowing nail Plan: Moderately?severe?ingrown?nail?great?toe Demonstrated?packing?cotton?pledgets?at?ungual?fold?which?he?can?try ?while?waiting?for?Podiatry (4) Bilateral shoulder pain: Code(s): M25.511 - Pain in right shoulder; M25.512 - Pain in left shoulder Plan: Has?referral?for?physical?therapy He?notes?that?he?is?exercising Continue?PT Orders: Orders Comprehensive [place]. Panel Fast Today E78.5 - Hyperlipidemia, unspecified, Z00.00 - Encounter for general adult medical examination without abnormal findings Hemoglobin A1c Today R73.01 - Impaired fasting glucose Lipid Panel Today E78.5 - Hyperlipidemia, unspecified, Z00.00 - Encounter for general adult medical examination without abnormal findings Referrals Podiatry Referral L60.0 - Ingrowing nail Coding Level of Care Code Est Pt Level 4 (38652) Diagnoses Hyperlipidemia E78.5 Elevated fasting glucose R73.01 Ingrown nail L60.0 Bilateral shoulder pain M25.511; M25.512
[2023-09-07 15:46] VITALS: BP 124/70; PULSE 59; O2SAT 98; BMI 33.4
== END 2023-09-07 16:50 | disposition home or self-care (01) ==
PROVIDERS: PCP Family Medicine; Visit Provider Family Medicine
DX: E78.5 Hyperlipidemia, unspecified (principal); R73.01 Impaired fasting glucose; L60.0 Ingrowing nail; M25.511 Pain in right shoulder; M25.512 Pain in left shoulder
CPT/HCPCS: 99214

== ENCOUNTER 2023-09-30 14:00 | Outpatient (RCR) | payer OTHER, SELFPAY | END 2024-01-03 09:45 | disposition home or self-care (01) | LOC: HO.PTWFD 14:00 | PROVIDERS: PCP Family Medicine; Visit Provider Family Medicine | DX: M25.511 Pain in right shoulder (principal); M25.512 Pain in left shoulder | CPT/HCPCS: 97110; 97161 ==